=== PATIENT | male | born 1980 | race Caucasian/White ===

== ENCOUNTER 2022-09-28 17:18 | Emergency (ER) | payer BC ==
[2022-09-28] MEDS ORDERED: Lidocaine 1% 5 ML VIAL INJECT ONE (17:43)
[2022-09-28] MEDS ORDERED: Bacitracin Oint 1 GM U/D Packet TOP ONE (17:53)
[2022-09-28] MEDS ORDERED: Diphtheria,Pertussis(Acell),Tetanus Vaccine 0.5 ML Syringe IM ONE (17:53)
== END 2022-09-28 18:10 | disposition home or self-care (01) ==
LOC: JP.ED 17:18
DX: S60.552A Superficial foreign body of left hand, initial encounter (principal); Z23 Encounter for immunization; W45.8XXA Other foreign body or object entering through skin, initial encounter
CPT/HCPCS: 90471; 90715; 99282; 99282-25